=== PATIENT | male | born 1995 | race Caucasian/White ===

== ENCOUNTER 2017-09-13 00:32 | Emergency (ER) | payer SELFPAY ==
[~2017-09-13] VITALS: Ht 182.9 cm; Wt 80.9 kg
[2017-09-13 00:37] VITALS: TEMP 98
[2017-09-13 01:10] LABS: BASO % 0.2 % (0.0-2.0); EOS % 0.2 % (0-4.0); GRAN # 5.5 (1.4-6.5); GRAN % 64.5 % (42.2-75.2); HEMATOCRIT 46.3 % (42.0-52.0); HEMOGLOBIN 15.9 g/dl (13.5-18.0); LYMPH # 1.8 (1.2-3.4); LYMPH % 21.6 % (20.0-51.0); MEAN CELL VOLUME 89 fl (80.0-100.0); MEAN CORPUSCULAR HEMOGLOBIN 30 pg (27.0-31.0); MEAN CORPUSCULAR HGB CONC 34 g/dl (33.0-37.0); MEAN PLATELET VOLUME 9.7 fl (7.4-10.4); MONO # 1.1 (0.1-0.6); MONO % 13.3 % (1.7-9.3); PLATELET COUNT 220 K/mm3 (130-400); RED BLOOD COUNT 5.23 M/mm3 (4.20-5.60); REDCELL DISTRIBUTION WIDTH-CV 12.3 % (11.5-14.5)
[2017-09-13 01:15] LABS: COLLECTION METHOD CLEAN CATCH
[2017-09-13 01:28] LABS: MUCOUS Present /lpf; PH 5 (5-8); SQUAMOUS EPITHELIAL 0-2 /hpf; URINE APPEARANCE Clear; URINE BACTERIA None Seen /hpf; URINE BILIRUBIN Negative (NEGATIVE); URINE BLOOD 2+ (NEGATIVE); URINE COLOR Yellow; URINE GLUCOSE Negative (NEGATIVE); URINE KETONE Negative (NEGATIVE); URINE LEUKOCYTE ESTERASE Negative (NEGATIVE); URINE NITRATE Negative (NEGATIVE); URINE PROTEIN(semi-quant) 1+ (NEGATIVE); URINE UROBILINOGEN >=4.0 mg/dL (NEGATIVE)
[2017-09-13 01:28] LABS: ALBUMIN 4.6 gm/dL (3.5-5.0); BILIRUBIN,TOTAL 0.8 mg/dL (0.0-1.0); C-REACTIVE PROTEIN 3.7 mg/dL (0.0-0.9); CALCIUM 9.5 mg/dL (8.4-10.2); CREATININE, serum 0.96 mg/dL (0.66-1.25); POTASSIUM 3.8 mmol/L (3.4-5.0); TOTAL PROTEIN 8.7 gm/dL (6.4-8.2)
[2017-09-13] MEDS ORDERED: NORCO 325 MG-51 TAB PO (02:31)
[2017-09-13] MEDS ORDERED: ZOFRAN 4MG T4 MG/TAB PO (02:31)
[2017-09-13 02:40] VITALS: BP 115/61; PULSE 77
[2017-09-14] MEDS ORDERED: AMOXICILLIN 50500 MG PO (18:36)
== END 2017-09-13 02:41 | disposition home or self-care (01) ==
LOC: COL.ER 00:32
PROVIDERS: Emergency Medicine
DX: R31.29 Other microscopic hematuria (principal); R10.30 Lower abdominal pain, unspecified
CPT/HCPCS: J7030; Q9967